=== PATIENT | male | born 1985 | race Caucasian/White ===

== ENCOUNTER → 2020-10-26 | Outpatient (CLI) | payer OTHER ==
[~2020-10-26] MED LIST: AMOXICILLIN500 MG PO; TRAMADOL HCL50 MG PO; TRIMOX500 MG PO
== END | disposition home or self-care (01) ==
LOC: COVID19 11:47
PROVIDERS: ATTEND Hospitalist
DX: Z20.828 Contact with and (suspected) exposure to other viral communicable diseases (principal)

== ENCOUNTER → 2020-11-11 | Outpatient (CLI) | payer OTHER | END | disposition home or self-care (01) | LOC: COVID19 10:38 | PROVIDERS: ATTEND Internal Medicine | DX: U07.1 COVID-19 (principal); R43.0 Anosmia ==

== ENCOUNTER → 2021-10-24 | Outpatient (CLI) | payer OTHER | END | disposition home or self-care (01) | LOC: COVID19 16:12 | PROVIDERS: ATTEND Internal Medicine | DX: Z11.52 Encounter for screening for COVID-19 (principal) ==

== ENCOUNTER → 2021-10-28 | Outpatient (CLI) | payer OTHER | END | disposition home or self-care (01) | LOC: COVID19 16:11 | PROVIDERS: ATTEND Internal Medicine | DX: Z11.52 Encounter for screening for COVID-19 (principal) ==

== ENCOUNTER → 2021-11-14 | Outpatient (CLI) | payer OTHER | END | disposition home or self-care (01) | LOC: COVID19 16:35 | PROVIDERS: ATTEND Internal Medicine | DX: Z20.822 Contact with and (suspected) exposure to COVID-19 (principal) ==

== ENCOUNTER 2022-04-06 19:51 | Emergency (ER) | payer OTHER ==
[~2022-04-06] VITALS: Ht 185.4 cm; Wt 113.4 kg
== END 2022-04-06 21:40 | disposition home or self-care (01) ==
LOC: ED 19:51
DX: J06.9 Acute upper respiratory infection, unspecified (principal); Z20.822 Contact with and (suspected) exposure to COVID-19

== ENCOUNTER 2022-11-13 23:47 | Emergency (ER) | payer OTHER ==
[~2022-11-13] VITALS: Ht 185.4 cm; Wt 113.4 kg
[2022-11-14] MEDS ORDERED: WAL ITIN PO (03:05)
[2022-11-14] MEDS ORDERED: ZITHROMAX250 MG PO (03:05)
== END 2022-11-14 03:34 | disposition home or self-care (01) ==
LOC: ED 23:47
DX: J06.9 Acute upper respiratory infection, unspecified (principal); Z20.822 Contact with and (suspected) exposure to COVID-19